=== PATIENT | male | born 1985 | race African-American/Black ===

== ENCOUNTER 2019-10-19 22:50 | Emergency (ER) | payer BC ==
[2019-10-19 23:04] VITALS: TEMP 98.6; BMI 26.2
[2019-10-20] MEDS ORDERED: methylPREDNISolone NA SUCC 125 MG/2 ML VIAL IVPUSH ONE (02:09)
[2019-10-20] MEDS ORDERED: ALBUTEROL SO4 2.5/IPRATROPIUM 0.5 INH SOL 3 ML VIAL.NEB. NEB ONE ×3 (02:09→02:58)
--- NOTE | 2019-10-20 02:09 | PDOC ---
History of Present Illness - General Chief Complaint: Asthma Stated Complaint: ASTHMA Time Seen by Provider: 10/20/19 01:44 History Source: Patient - History of Present Illness Initial Comments: 10/20/19 03:47 33-year-old male complaining of wheezing and cough since today. Patient reported that he is allergic to dogs and have was around family that had dogs. Lifelong history of asthma denies intubation or hospitalization. Past History - Past Medical History Allergies/Adverse Reactions: Allergies Allergy/AdvReac Type Severity Reaction Status Date / Time shellfish derived Allergy Intermediate asthma Verified 10/20/19 01:36 No Known Drug Allergies Allergy Verified 10/20/19 01:36 red meat Allergy Intermediate asthma Uncoded 10/20/19 01:36 Home Medications: Ambulatory Orders Albuterol 0.083% Nebulizer Hermelinda [Ventolin 0.083% Nebulizer Soln -] 1 neb NEB Q4H PRN #30 vial 10/20/19 Albuterol Sulfate [Proair Hfa] 8.5 gm IH Q4H PRN 10/20/19 Nebulizer [Aeroeclipse II] 1 each MC QID PRN #1 each 10/20/19 predniSONE [Deltasone -] 40 mg PO DAILY #10 tablet 10/20/19 Asthma: Yes COPD: No - Surgical History Abdominal Surgery: Yes Appendectomy: Yes - Psycho Social/Smoking Cessation Hx Smoking History: Never smoked Information on smoking cessation initiated: No Hx Alcohol Use: No Drug/Substance Use Hx: No Substance Use Type: None *Physical Exam - Vital Signs Last Vital Signs Temp Pulse Resp BP Pulse Ox 98.6 F 86 19 118/70 98 10/19/19 23:01 10/20/19 01:44 10/19/19 23:01 10/19/19 23:01 10/20/19 01:44 - Physical Exam General Appearance: Yes: Appropriately Dressed Neck: negative: Tender, Trachea midline, Normal Thyroid, Rigid, Supple, Carotid bruit, Decreased range of motion, Stridor, Lymphadenopathy (R), Lymphadenopathy (L), Rigidity, Tender lateral, Tender midline, Thyromegaly, Other Respiratory/Chest: positive: Labored Respiration, Decreased Breath Sounds Cardiovascular: positive: Regular Rhythm, Regular Rate Extremity: positive: Normal Capillary Refill, Normal Inspection, Normal Range of Motion Integumentary: positive: Normal Color, Dry, Warm Neurologic: positive: Fully Oriented, Alert, Normal Mood/Affect ED Treatment Course - RADIOLOGY Chest X-Ray Result: No Infiltrates ED Progress Note - Progress Note Progress Note: 10/20/19 06:23 A: asthma exacerbation P: duoneb solumedrol chest xray Medical Decision Making - Medical Decision Making 10/20/19 03:48 Improved aeration. Patient reports that he is feeling better. Will DC home Discharge - Discharge Information Problems reviewed: Yes Clinical Impression/Diagnosis: Asthma exacerbation Qualifiers: Asthma severity: mild Asthma persistence: persistent Qualified Code(s): J45.31 - Mild persistent asthma with (acute) exacerbation Disposition: HOME - Additional Discharge Information Prescriptions: Albuterol 0.083% Nebulizer Hermelinda [Ventolin 0.083% Nebulizer Soln -] 1 neb NEB Q4H PRN #30 vial PRN Reason: Asthma Nebulizer [Aeroeclipse II] 1 each MC QID PRN #1 each PRN Reason: Asthma predniSONE [Deltasone -] 40 mg PO DAILY #10 tablet - Follow up/Referral Referrals: Dania Tuttle MD [Primary Care Provider] - - Patient Discharge Instructions Patient Printed Discharge Instructions: Asthma -- Adult Additional Instructions: Use albuterol every 4-6 hours as needed for wheezing and cough. Start prednisone tomorrow today evening. Return to the emergency room for any worsening symptoms - Post Discharge Activity Work/Back to School Note: Back to Work
[2019-10-20] MEDS ORDERED: methylPREDNISolone NA SUCC 125 MG/2 ML VIAL ONE (02:34)
[2019-10-20] MEDS: ALBUTEROL SO4 2.5/IPRATROPIUM 0.5 INH SOL 3 ML VIAL.NEB. NEB SCH ×2 (03:08→03:25)
[2019-10-20 03:56] VITALS: BP 120/72; PULSE 69
== END 2019-10-20 04:04 | disposition home or self-care (01) ==
LOC: JER 22:50
PROC: 3E0333Z Introduction of Anti-inflammatory into Peripheral Vein, Percutaneous Approach (ICD-10-PCS; principal; 2019-10-19)
PROC: 3E0F7GC Introduction of Other Therapeutic Substance into Respiratory Tract, Via Natural or Artificial Opening (ICD-10-PCS; 2019-10-19)
PROC: 3E0F7GC Introduction of Other Therapeutic Substance into Respiratory Tract, Via Natural or Artificial Opening (ICD-10-PCS; 2019-10-19)
DX: J45.31 Mild persistent asthma with (acute) exacerbation (principal); Z91.018 Allergy to other foods; Z91.013 Allergy to seafood
CPT/HCPCS: 71046-TC-FY; 99284-25

== ENCOUNTER 2022-06-02 18:00 | Emergency (ER) | payer BC ==
[2022-06-02 18:12] VITALS: BP 115/77; PULSE 85; RESP 18; TEMP 98.8; BMI 24.3
[2022-06-02] MEDS ORDERED: LIDOCAINE VISCOUS 2% ORAL/TOP 15 ML UNIT-DOSE CUP MM ONE (19:47)
[2022-06-02] MEDS ORDERED: MAG HYDROX/AL HYDROX/SIMETH -MYLANTA- ORAL SUSPENSION PO ONE (19:47)
[2022-06-02] MEDS ORDERED: FAMOTIDINE 20 MG/50 ML IVPB 20 MG/50 ML MG IVPB ONE ×2 (19:47→21:14)
[2022-06-02 19:49] LABS: BASO % 0.2 % (0-2.0); EOS % 2.5 % (0-4.5); HEMATOCRIT 47.1 % (35.4-49); HEMOGLOBIN 16.2 GM/dL (11.7-16.9); LYMPH % 32.1 % (8-40); MCHC 34.3 g/dl (32.0-35.9); MEAN CELL VOLUME 90.5 fl (80-96); MEAN PLT VOLUME 9.5 fl (7.5-11.1); MONO % 8.7 % (3.8-10.2); NEUT % 56.5 % (42.8-82.8); PLATELET COUNT 148 10^3/uL (134-434); RDW 12.8 % (11.9-15.9); WHITE BLOOD COUNT 8.2 K/mm3 (4.0-10.0)
[2022-06-02 20:07] LABS: CHLORIDE 107 mmol/L (98-107); SODIUM 140 mmol/L (136-145)
[2022-06-02 20:09] LABS: CALCIUM 11.2 mg/dL (8.5-10.1)
[2022-06-02 20:10] LABS: ANION GAP 6 MMOL/L (8-16); BLOOD UREA NITROGEN 13.9 mg/dL (7-18); CO2 27 mmol/L (21-32); GLUCOSE,RANDOM 77 mg/dL (74-106)
[2022-06-02 20:13] LABS: CREATININE 1.1 mg/dL (0.55-1.3); SGOT/AST 32 U/L (15-37); SGPT/ALT 49 U/L (13-61)
[2022-06-02 20:14] LABS: BILIRUBIN,TOTAL 0.4 mg/dL (0.2-1); TOT PROT 7.5 g/dl (6.4-8.2)
[2022-06-02 20:16] LABS: ALK PHOS 84 U/L (45-117)
[2022-06-02] MEDS ORDERED: SODIUM CHLORIDE 0.9% 500 ML INFUS.BAG IV ONE (20:46)
[2022-06-02] MEDS ORDERED: ACETAMINOPHEN 1000 MG/100 ML BAG IVPB ONE (20:46)
[2022-06-02] MEDS ORDERED: ACETAMINOPHEN INJECTION 100 ML IVPB ONE (21:14)
[2022-06-02] MEDS ORDERED: LIDOCAINE VISCOUS 2% ORAL/TOP 15 ML UNIT-DOSE CUP ONE (21:14)
[2022-06-02] MEDS ORDERED: MAG HYDROX/AL HYDROX/SIMETH 30 ML UNIT-DOSE CUP ONE (21:14)
[2022-06-03 08:18] LABS: LIPASE 95 U/L (73-393)
[2022-06-03 08:25] LABS: N-TERMINAL BNP 11.2 pg/ml (5-125)
== END 2022-06-03 00:14 | disposition home or self-care (01) ==
LOC: JER 18:00
PROC: 3E033GC Introduction of Other Therapeutic Substance into Peripheral Vein, Percutaneous Approach (ICD-10-PCS; principal; 2022-06-02)
DX: R07.9 Chest pain, unspecified (principal); J18.9 Pneumonia, unspecified organism
CPT/HCPCS: 36415; 71275-TC; 80053; 83690; 83880; 84484; 85025; 85379; 93005; 93010; 99285-25; Q9967